=== PATIENT | female | born 2005 | race Caucasian/White ===

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

== ENCOUNTER 2023-11-12 10:18 | Emergency (ER) | payer MEDICAID ==
[2023-11-12] MEDS: Diphtheria,Pertussis(Acell),Tetanus Vaccine 0.5 ML Syringe IM ONE (11:34)
[2023-11-12] MEDS: Bacitracin Oint 1 GM U/D Packet TOP ONE (11:34)
== END 2023-11-12 12:11 | disposition home or self-care (01) ==
LOC: MW.ED 10:18
DX: S67.191A Crushing injury of left index finger, initial encounter (principal); Z23 Encounter for immunization; W23.0XXA Caught, crushed, jammed, or pinched between moving objects, initial encounter
CPT/HCPCS: 73140-26-F1; 73140-F1; 90471; 90715; 99283; 99283-25